=== PATIENT | male | born 1995 | race Hispanic/Latino ===

== ENCOUNTER 2024-04-30 10:42 | Emergency (ER) | payer OTHER, SELFPAY ==
[2024-04-30 11:26] VITALS: BP 141/79; PULSE 90; RESP 14; TEMP 37.1; O2SAT 99; BMI 26.6
[2024-04-30 11:48] LABS: Add Manual Diff / Slide Review NO; Basophils Absolute Auto 0 /uL (0-100); Basophils Percent Auto 0.7 % (0-2); Eosinophils Absolute Auto 100 /uL (0-450); Eosinophils Percent Auto 2.5 % (2-4); Hematocrit 43.6 % (41-53); Hemoglobin 14.9 g/dL (13.5-17.5); Lymphocytes Absolute Auto 3100 /uL (1100-4500); Lymphocytes Percent Auto 54.2 % (25-40); Mean Corpuscular HGB Conc 34.1 % (30-36); Mean Corpuscular Hemoglobin 32.1 PG (26-34); Mean Corpuscular Volume 94.1 fL (80-100); Monocytes Absolute Auto 400 /uL (0-900); Neutrophils Absolute Auto 2100 /uL (1500-7000); Neutrophils Percent Auto 35.6 % (50-75); Platelet Count 283 X10^3/uL (150-400); Red Blood Cell Count 4.63 X10^6/uL (4.5-5.9); Red Cell Distribution Width 13.4 % (11.6-14.8); White Blood Cell Count 5.8 X10^3/uL (4.5-11.0)
[2024-04-30 12:07] LABS: Alanine Aminotransferase 51 IU/L (<50); Albumin 4.9 g/dL (3.5-5.0); Albumin Globulin Ratio 1.5 (1.0-2.8); Alkaline Phosphatase 28 U/L (38-126); Aspartate Aminotransferase 45 IU/L (17-59); BUN Creatinine Ratio 13.8 (6-22); Bilirubin Total 0.6 mg/dL (0.2-1.3); Blood Urea Nitrogen 11 mg/dL (9-20); Calcium 9.2 mg/dL (8.4-10.2); Carbon Dioxide 24 mmol/L (22-32); Chloride 107 mmol/L (98-107); Estimated Glomerular Filt Rate > 60 mL/min (>60); Globulin 3.3 g/dL (1.7-4.1); Glucose 87 mg/dL (70-100); HEMOLYSIS 25 (0-50); Lipase 78 U/L (23-300); Sodium 139 mmol/L (137-145); Total Protein 8.2 g/dL (6.3-8.2)
--- NOTE | 2024-04-30 14:45 | ED.ABDPAIN ---
HPI - Abdominal Pain General Chief Complaint: Abdominal Pain Stated Complaint: possible hernia Time Seen by Provider: 04/30/24 14:44 Source: patient Mode of arrival: Ambulatory History of Present Illness HPI narrative: Patient is a healthy 28-year-old male who presents today with left upper quadrant pain heat. He reports that it has been ongoing for a little while it is definitely worse with some movement and stretching. He feels like he might have a hernia he has never had surgery there is never any bulging but it does frequently her in the left upper quadrant which is definitely reproducible with palpation hand movement. He denies any sort of injury on it has been ongoing. Today he says the pain was a little worse and wanted to get checked Patient History Social History Smoking Status: Former smoker Smoking Status: Former smoker tobacco type: smokeless tobacco alcohol intake frequency: a few times a week Substance Use Type: does not use Exam Initial Vital Signs Initial Vital Signs: Vital Signs Temperature 98.7 F 04/30/24 11:26 Pulse Rate 90 04/30/24 11:26 Respiratory Rate 14 04/30/24 11:26 Blood Pressure 141/79 H 04/30/24 11:26 Pulse Oximetry 99 04/30/24 11:26 Oxygen Delivery Method Room Air 04/30/24 11:26 GENERAL: Well-appearing 28-year-old male HEENT: Head atraumatic,EOMI, pupils reactive, face symmetric, moist mucous membranes CARDIOVASCULAR: Regular rate and rhythm without murmurs, rubs or gallops. RESPIRATORY: Breath sounds equal bilaterally, no wheezes rales or rhonchi. ABDOMEN: Soft, nontender. Normoactive bowel sounds all 4 quadrants. No guarding or rebound. Pain in left upper quadrant reproducible no bulging no rash no surgical scars EXTREMITIES: Normal range of motion, no clubbing or edema. Neurovascularly intact NEUROLOGICAL: Alert and oriented x4.Normal gait and speech. SKIN: Warm, dry, no laceration, no petechiae, no rashes or lesions. Course Orders Ordered: ED Orders 04/30/24 11:18 Complete Blood Count AUTO DIFF Stat Comprehensive Metabolic Panel Stat Lipase Stat Discontinued Medications Ondansetron HCl (Ondansetron 4 Mg/2 Ml Inj) 4 mg IV NOW PRN PRN Reason: Nausea And Vomiting Vital Signs Vital signs: Vital Signs - 8 hr 07/12/24 11:26 04/30/24 15:14 Temperature 98.7 F Pulse Rate 90 77 Respiratory Rate 14 16 Blood Pressure 141/79 H Pulse Oximetry 99 99 Oxygen Delivery Method Room Air Room Air MDM - Abdominal Pain Lab Data 04/30/24 11:18 04/30/24 11:18 Labs: Lab Results 04/30/24 Range/Units 11:18 WBC 5.8 (4.5-11.0) X10^3/uL RBC 4.63 (4.5-5.9) X10^6/uL Hgb 14.9 (13.5-17.5) g/dL Hct 43.6 (41-53) % MCV 94.1 (80-100) fL MCH 32.1 (26-34) PG MCHC 34.1 (30-36) % RDW 13.4 (11.6-14.8) % Plt Count 283 (150-400) X10^3/uL Neut % (Auto) 35.6 L (50-75) % Lymph % (Auto) 54.2 H (25-40) % [place] % (Auto) 7.0 (3-14) % Eos % (Auto) 2.5 (2-4) % Baso % (Auto) 0.7 (0-2) % Neut # (Auto) 2100 (3854-1573) /uL Lymph # (Auto) 3100 (3401-5062) /uL [place] # (Auto) 400 (0-900) /uL Eos # (Auto) 100 (0-450) /uL Baso # (Auto) 0 (0-100) /uL Sodium 139 (137-145) mmol/L Potassium 4.0 (3.4-5.1) mmol/L Chloride 107 (98-107) mmol/L Carbon Dioxide 24 (22-32) mmol/L BUN 11 (9-20) mg/dL Creatinine 0.80 (0.66-1.25) mg/dL Estimated GFR > 60 (>60) mL/min BUN/Creatinine Ratio 13.8 (6-22) Glucose 87 (70-100) mg/dL Calcium 9.2 (8.4-10.2) mg/dL Total Bilirubin 0.6 (0.2-1.3) mg/dL AST 45 (17-59) IU/L ALT 51 H (<50) IU/L Alkaline Phosphatase 28 L (38-126) U/L Total Protein 8.2 (6.3-8.2) g/dL Albumin 4.9 (3.5-5.0) g/dL Globulin 3.3 (1.7-4.1) g/dL Albumin/Globulin Ratio 1.5 (1.0-2.8) Lipase 78 (23-300) U/L MDM Narrative Medical decision making narrative: Patient healthy 28-year-old male who has had ongoing left upper quadrant pain which is definitely worse with certain positions. Does not seem to be associated with food he has no nausea or vomiting. Symptoms are not consistent with a hernia. Blood work has been reviewed overall reassuring. Recommend that patient have outpatient follow-up primary care. At this time I think it is probably more of an abdominal muscle strain. At this time I see no need for any sort of imaging. Pain is not out of proportion mildly tender. Discharge Plan Departure Patient Disposition: Home Clinical Impression: Abdominal muscle strain Instructions: DI for Abdominal Muscle Strain Activity Restrictions/Additional Instructions: *You have been diagnosed with abdominal muscle strain *What to do: At the sinuses unlikely hernia. May try ice or heat. Okay to take Tylenol Motrin as needed for pain If this continues you require outpatient CT or imaging please talk with your PCP *Continue to take medications as directed *Follow up with your primary care provider in 2-3 days or call [phone] *Return to ER if you should have increasing pain persistent vomiting or any new, worsening or concerning symptoms Stand Alone Forms: Patient Portal/API
[2024-04-30 15:14] VITALS: PULSE 77; RESP 16; O2SAT 99
== END 2024-04-30 15:16 | disposition home or self-care (01) ==
PROVIDERS: Emergency Provider Emergency Medicine
DX: S39.011A Strain of muscle, fascia and tendon of abdomen, initial encounter (principal); X58.XXXA Exposure to other specified factors, initial encounter
CPT/HCPCS: 36415; 80053; 83690; 85025; 99282; 99283

== ENCOUNTER 2024-05-25 16:19 | Emergency (ER) | payer OTHER, SELFPAY ==
[2024-05-25 16:27] VITALS: BP 137/84; PULSE 71; RESP 18; TEMP 36.8; O2SAT 100; BMI 27.7
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
[2024-05-25 17:40] VITALS: BP 136/81; PULSE 68; RESP 16; O2SAT 100
== END 2024-05-25 17:42 | disposition home or self-care (01) ==
PROVIDERS: Emergency Provider Emergency Medicine
DX: S06.0X0A Concussion without loss of consciousness, initial encounter (principal); R07.9 Chest pain, unspecified; M54.2 Cervicalgia; S40.812A Abrasion of left upper arm, initial encounter; S40.811A Abrasion of right upper arm, initial encounter; V29.99XA Rider (driver) (passenger) of other motorcycle injured in unspecified traffic accident, initial encounter
CPT/HCPCS: 70450; 72125; 99283; 99284